=== PATIENT | male | born 1960 | race Caucasian/White ===

== ENCOUNTER 2020-09-29 17:56 | Inpatient (IN) | payer MEDICARE, OTHER ==
[~2020-09-29] VITALS: Ht 152.4 cm; Wt 51.7 kg
--- NOTE | 2020-09-29 18:37 | NUR ---
RT NOTE RECEIVED PT DIRECT ADMIT. PT HAS SHILEY 6 XLT-P TRACHEOSTOMY TUBE IN PLACE. CUFF INFLATED. TRACH TUBE MIDLINE AND SECURE. VENTILATOR SETTINGS ENDORSED BY TRANSPORT CREW RN. ALARMS SET PER PROTOCOL AND AUDIBLE. VENT PLUGGED IN TO RED OUTLET. AMBU BAG AND BACK UP TRACH AT BED SIDE. NO DISTRESS NOTED. PT AWAKE AND ALERT. Addendum: 09/29/20 at 1840 by RONEY MANZO RT Amended: Links added.
[2020-09-29] MEDS ORDERED: METO25TA6 GT (19:15)
[2020-09-29] MEDS ORDERED: ASCO500C17 GT (19:15)
[2020-09-29] MEDS ORDERED: PARO10TA86 GT (19:15)
[2020-09-29] MEDS ORDERED: FAMO20TA80 GT (19:15)
[2020-09-29] MEDS ORDERED: IPRATROPIUM NEB FS 0.5 MG/2.5 ML AMPUL.NEB NEB PRN (19:30)
[2020-09-29] MEDS ORDERED: ALBUTEROL HALF STRENGTH 1.25 MG/3 ML VIAL.NEB NEB PRN (19:30)
[2020-09-29] MEDS ORDERED: ACETAMINOPHEN 325 MG TABLET PO PRN (19:30)
[2020-09-29] MEDS ORDERED: ZOLPIDEM TARTRATE 5 MG TABLET PO PRN (19:30)
[2020-09-29] MEDS ORDERED: MAGNESIUM HYDROXIDE 30 ML UDC PO PRN (19:30)
[2020-09-29] MEDS ORDERED: ONDANSETRON HCL/PF 4 MG/2 ML VIAL IVP PRN (19:30)
--- NOTE | 2020-09-29 19:30 | NUR ---
RN NOTES RECEIVED A DIRECT ADMIT FROM VESNA FROM AM SHIFT. PT IS A/OX2-3; NON VERBAL BUT ABLE TO NOD AND OPEN EYES FOR COMMUNICATION; PT ON MECHANICAL VENT; SETTINGS PRESCRIBED WITH RESPIRATIONS EVEN AND UNLABORED. PT HAS G TUBE FLUSHING AND PATENT; SITE CLEAN DRY AND INTACT; NO RESIDUAL NOTED; CLAMPED AT THIS TIME. NOTED IV SITE ON L AC #20 ; PATENT, INTACT AND FLUSHING WELL; NO S/S OF INFECTION OR INFILTRATION. COMPREHENSIVE PHYSICAL ASSESSMENT AND PATIENT CARE DONE. CALL LIGHT WITHIN REACH, SAFETY MEASURES AND ISOLATION PRECAUTION IN PLACE, WILL CONTINUE MONITOR AND ASSESS THROUGHOUT THE SHIFT. WILL CARRY OUT MD ORDERS ACCORDINGLY. CUSHION FILLER MADE AWARE.
[2020-09-29 20:00] VITALS: BP 92/63
--- NOTE | 2020-09-29 20:00 | NUR ---
RN NOTES NOTED PT TO HAVE MILD TO MODERATE AMOUNT OF SECRETIONS; AUSCULTATION DONE AND PROVIDED SUCTIONING AND REPOSITIONING. PT TOLERATED WELL. WILL CONTINUE TO PROVIDE REGULAR TURNING /REPOSITIONING AND SUCTIONING MEASURES. FINANCIAL INVESTIGATOR WELL AWARE. WILL CONTINUE TO ASSESS AND MONITOR THROUGHOUT THE SHIFT.
[2020-09-29] MEDS: IV NS 0.9% 1,000 ML IV PRN (20:11)
[2020-09-29] MEDS ORDERED: MAGNESIUM HYDROXIDE 30 ML UDC GT PRN (20:23)
[2020-09-29] MEDS ORDERED: ZOLPIDEM TARTRATE 5 MG TABLET GT PRN (20:23)
[2020-09-29] MEDS ORDERED: ACETAMINOPHEN 650 MG/20.3 ML UDC GT PRN (20:30)
--- NOTE | 2020-09-29 20:30 | NUR ---
RN NOTES CALLED JOSÉ MIGUEL WATKINS PROVIDED PERTINENT INFO ABOUT PT; ADVISED HIM THAT PT UED TO GET TUBE FEEDING [facility] IN [facility], JOSÉ MIGUEL WATKINS ORDERED DIETARY CONSULT FOR EVAL AND ASSESSMENT FOR TUBE FEEDING. WILL ENDORSE TO AM SHIFT REGARDING THIS INFO IN THE MORNING. METALLOGRAPHER MADE AWARE.
--- NOTE | 2020-09-29 20:48 | NUR ---
RN NOTES CALLED QUINN MURPHY( [phone]) CONFIRMED CODE STATUS OF PT, SHE SAID PT IS DNR. MANAGER ADMINISTRATIVE SERVICES MADE AWARE. PROVIDED GENERAL UPDATES ABOUT PT WHO JUST GOT ADMITTED.
[2020-09-29] MEDS: CEFEPIME 2 GM in IV D5W 100 ML IV SCH (21:41)
[2020-09-29] MEDS: VANCOMYCIN 0.75 GM in IV D5W 250 ML IV SCH (21:41)
--- NOTE | 2020-09-29 23:00 | NUR ---
RN NOTES NO CHANGE IN PATIENT CONDITION AT THIS TIME PATIENT VITALS STABLE, NO SIGNS OF ACUTE RESPIRATORY DISTRESS. SUBMARINE CABLE EQUIPMENT TECHNICIAN MADE AWARE. WILL CONTINUE TO MONITOR AND REASSESS FOR ANY CHANGES THROUGHOUT THE SHIFT.
[2020-09-30] VITALS: BP 117/78
[2020-09-30 02:35] LABS: ABG BASE EXCESS 6.6 mmol/L; ABG OXYGEN SATURATION 91.1 % (92.0-98.5); ABG PCO2 56.9 mmHg (35.0-45.0); ABG PH 7.383 (7.350-7.450); ABG PO2 64.7 mmHg (75.0-100.0); AaDO2 155.1 mmHg; COHb 0.7 % (0.5-1.5); MetHb 0.3 % (0.0-1.5); O2Hb 90.2 % (94.0-97.0); PEEP,BG 5 cm H2O; SITE, ABG Right Radial; VENT MODE, BG AC 20/480/40%/+5; VT, ABG 450 mL
[2020-09-30 04:00] VITALS: BP 111/81
--- NOTE | 2020-09-30 04:00 | NUR ---
RN NOTES PATIENT REMAINS IN NO ACUTE RESPIRATORY DISTRESS AT THIS TIME, NO CHANGES TO CONDITION/STATUS. AM PATIENT CARE DONE. BAKERY SUPERVISOR WELL AWARE. WILL CONTINUE TO MONITOR AND REASSESS FOR ANY CHANGES THROUGHOUT THE SHIFT
[2020-09-30] MEDS: VANCOMYCIN 0.75 GM in IV D5W 250 ML IV SCH ×2 (04:23→12:54)
[2020-09-30 05:12] LABS: BILIRUBIN,URINE NEGATIVE (NEGATIVE); COLOR,URINE YELLOW (YELLOW); LEUKOCYTE ESTERASE ,URINE NEGATIVE (NEGATIVE); NITRITE, URINE NEGATIVE (NEGATIVE); PROTEIN,URINE 100 mg/dl (NEGATIVE); UGLUCOSE NEGATIVE (NEGATIVE); UROBILINOGEN,URINE 0.2 EU/dL (0.2)
[2020-09-30 06:04] LABS: WBC,URINE 0-2 /HPF (0-3)
[2020-09-30 06:05] LABS: BACTERIA,URINE None seen /HPF (None Seen); SQUAMOUS EPITHELIAL CELL,UR Few /HPF (None Seen); URINE AMORPHOUS URATE Few /HPF (None Seen)
[2020-09-30 06:11] LABS: BASOPHILS # (AUTO) 0.1 K/uL (0.0-0.2); BASOPHILS % (AUTO) 0.3 % (0.0-2.0); EOSINOPHILS % (AUTO) 4.9 % (0.0-6.0); HEMATOCRIT 25 % (39-51); HEMOGLOBIN 7.5 g/dL (13.5-17.5); LYMPHOCYTES # (AUTO) 3.8 K/uL (0.8-4.8); MEAN CORPUSCULAR HGB CONC 31 g/dl (31.0-36.0); MEAN CORPUSCULAR VOLUME 91 fL (80-96); MONOCYTES # (AUTO) 2.2 K/uL (0.1-1.30); MONOCYTES % (AUTO) 9.8 % (2.0-12.0); NEUTROPHILS # (AUTO) 15.3 K/uL (1.8-8.9); PLATELET COUNT (AUTO) 488 K/uL (150-450); WHITE BLOOD COUNT (AUTO) 22.5 K/uL (4.3-11.0)
[2020-09-30 06:39] LABS: CALCIUM, SERUM 8.4 mg/dL (8.5-10.1); CREATININE 0.9 mg/dL (0.6-1.3); MAGNESIUM 1.9 mg/dL (1.8-2.4)
--- NOTE | 2020-09-30 06:52 | NUR ---
RN CLOSING NOTE: PATIENT REMAINS IN ROOM IN NO SIGNS OF RESPIRATORY DISTRESS, PATIENT STILL ON MECH VENT WITH SETTINGS PRESCRIBED;TOLERATING WELL SATURATING @ >95% SP02. SAFETY MEASURES IMPLEMENTED, BED IN LOWEST POSITION, LOCKED, SIDE RAILS UP, CALL LIGHT WITHIN REACH. ALL NEEDS AND ORDERS ADDRESSED DURING THE SHIFT. IV ACCESS MAINTAINED INTACT, SECURED AND FLUSHING WELL. ALL DUE MEDS GIVEN ORDERED & SCHEDULED ; PATIENT TOLERATED WELL. PATIENT KEPT CLEAN AND COMFORTABLE WITHIN THE SHIFT. PATIENT ENDORSED TO INCOMING SHIFT RN WITH STABLE VITAL SIGN AND FOR CONTINUITY OF CARE.
--- NOTE | 2020-09-30 07:30 | NUR ---
KISS MACHINE OPERATOR AM NOTES: PATIENT IN BED, ASLEEP, AROUSES TO NAME AND TOUCH, MOUTH WORDS, NODS HEAD TO SIMPLE QUESTIONS, WITH SHILEY 6 TRACH TO MECHANICAL VENT WITH SETTINGS AC 20 TV 480 FIO2 50 PEEP 5, BREATHING EVEN AND UNLABORED, NOT IN ANY DISTRESS, SINUS RHYTHM ON THE MONITOR HR 80s TO 90s, SATURATING @ >98% SP02, DENIES PAIN AT THIS TIME. LEFT AC G 20 WITH NS A T 75 ML/HR INFUSING, SITE CLEAR. GT CLAMPED FOR NOW, SEE NURSING ASSESSMENT FOR SKIN ISSUES. SAFETY MEASURES IN PLACE. BED IN LOWEST POSITION, LOCKED, SIDE RAILS UP, CALL LIGHT WITHIN REACH. NEEDS ANTICIPATED. WILL CONTINUE TO MONITOR
[2020-09-30] MEDS ORDERED: ALBU8.5H8 IH (07:41)
[2020-09-30] MEDS ORDERED: DEXT15DR6 OP (07:41)
[2020-09-30] MEDS ORDERED: SCOP1PAT11 TD (07:41)
[2020-09-30] MEDS ORDERED: ACET325T53 GT (07:41)
[2020-09-30] MEDS ORDERED: ONDA4TAB11 GT (07:41)
[2020-09-30] MEDS ORDERED: ACET100V4 MC (07:41)
[2020-09-30] MEDS ORDERED: CEFE2FRO IV (07:41)
[2020-09-30] MEDS ORDERED: LACT250L14 GT (07:41)
[2020-09-30] MEDS ORDERED: TRAZ-182 GT (07:41)
[2020-09-30] MEDS ORDERED: ACID1TAB12 GT (07:41)
[2020-09-30] MEDS ORDERED: MIDO10TA GT (07:41)
[2020-09-30] MEDS ORDERED: LATA2.5D15 OP (07:41)
[2020-09-30] MEDS ORDERED: MULT-447 GT (07:41)
[2020-09-30] MEDS ORDERED: IPRA3AMP23 IH (07:41)
[2020-09-30] MEDS ORDERED: HYDR-4209 GT (07:41)
[2020-09-30] MEDS ORDERED: CHOL200059 GT (07:41)
[2020-09-30] MEDS ORDERED: FAMO20TA8 GT (07:41)
[2020-09-30] MEDS ORDERED: MAGN400O6 GT (07:41)
[2020-09-30 08:00] VITALS: BP 112/72
[2020-09-30] MEDS ORDERED: FAMOTIDINE (20 MG) 20 MG TABLET GT SCH (09:00)
--- NOTE | 2020-09-30 09:30 | NUR ---
RN NOTES DUE MEDS GIVEN
[2020-09-30] MEDS: CEFEPIME 2 GM in IV D5W 100 ML IV SCH ×2 (09:52→21:55)
[2020-09-30] MEDS: METOPROLOL TARTRATE 25 MG TABLET GT SCH (09:54)
[2020-09-30] MEDS: ASCORBIC ACID 500 MG TABLET GT SCH (09:54)
[2020-09-30] MEDS: PAROXETINE HCL 10 MG TABLET GT SCH (09:54)
[2020-09-30] MEDS: IV NS 0.9% 1,000 ML IV PRN (10:04)
[2020-09-30] MEDS: IPRATROPIUM/ALBUTEROL INHALER IH SCH ×2 (10:21→13:30)
[2020-09-30] MEDS: ENOXAPARIN SODIUM 40 MG/0.4 ML DISP.SYRIN SQ SCH (11:20)
[2020-09-30 11:22] LABS: BAND % (MANUAL) 1 % (0.0-5.0); EOSINOPHILS % (MANUAL) 1 % (0-4); LYMPHOCYTES % (MANUAL) 12 % (16-48); MONOCYTES % (MANUAL) 6 % (0-11.0); NEUTROPHILS % (MANUAL) 80 (42-76)
[2020-09-30] MEDS ORDERED: POLYVINYL ALCOHOL 15 ML BOTTLE EACHEYE PRN (11:30)
[2020-09-30 12:00] VITALS: BP 113/73
[2020-09-30] MEDS ORDERED: IPRATROPIUM BROMIDE 14 GM INHALER (or 12.9 GM) IH SCH (12:00)
[2020-09-30] MEDS ORDERED: ALBUTEROL SULFATE INH 18 GM HFA.AER.AD IH SCH (12:00)
[2020-09-30] MEDS: CHOLECALCIFEROL 1,000 UNIT TABLET (VIT D3) PO SCH (12:54)
[2020-09-30 13:00] LABS: IRON, SERUM 47 ug/dl (50-175); TOTAL IRON BINDING CAPACITY 212 ug/dl (250-450)
[2020-09-30] MEDS ORDERED: ACETYLCYSTEINE 10% SOLN 400 MG/4 ML VIAL HHN PRN (13:30)
--- NOTE | 2020-09-30 15:19 | NUR ---
RN NOTES PER DARLYN BRADFORD NP. IRVING TO START TUBE FEEDING, JEVITY 1.2 AT 60 ML/HR X 20 HOURS. ALSO FOR DIETARY CONSULT
[2020-09-30 16:00] VITALS: BP 112/68
--- NOTE | 2020-09-30 16:28 | NUR ---
RN NOTES BLADDER SCAN DONE. URINE >300 ML. JAMIL CATH INSERTED PCR COVID TEST SPECIMEN COLLECTED ND SENT TO LAB C/O DEANN CHARGE NURSE
[2020-09-30] MEDS: FAMOTIDINE (20 MG) 20 MG TABLET GT SCH (17:31)
--- NOTE | 2020-09-30 18:24 | NUR ---
FULL STACK SOFTWARE DEVELOPER PM NOTES: PATIENT IN BED, AOX 3, MOUTH WORDS, NODS HEAD TO SIMPLE QUESTIONS, WITH SHILEY 6 TRACH TO MECHANICAL VENT WITH SETTINGS AC 20 TV 480 FIO2 50 PEEP 5, BREATHING EVEN AND UNLABORED, NOT IN ANY DISTRESS, SINUS RHYTHM ON THE MONITOR HR 80s TO 90s, SATURATING @ >97% SP02, DENIES PAIN AT THIS TIME. LEFT AC G 20 WITH NS AT 75 ML/HR INFUSING, SITE CLEAR. GT CLAMPED FOR NOW, SAFETY MEASURES IN PLACE. BED IN LOWEST POSITION, LOCKED, SIDE RAILS UP, CALL LIGHT WITHIN REACH. PM CARE DONE. TURNED AND REPOSITIONED. ALL NEEDS MET AT THIS TIME. WILL ENDORSE TO NEXT SHIFT. JAMIL IN PLACE, CLOUDY URINE OUTPUT, 275 ML. PATIENT TO START GT FEEDING, CHECKED WITH DIETARY. NO BOTTLE AVAILABLE YET.
[2020-09-30] MEDS: ALBUTEROL SULFATE INH 18 GM HFA.AER.AD IH SCH (19:30)
--- NOTE | 2020-09-30 19:58 | NUR ---
RN NOTES RECEIVED PATIENT SLEEPING BUT AROUSABLE, VENT DEPENDENT, SR ON TELE MONITOR HR-92., F/C DRAINING CLEAR YELLOW URINE, NOT IN DISTRESS, NO PAIN NOTED, SIDERAILSUPX2, WILL CONTINUE TO MONITOR
[2020-09-30 20:00] VITALS: BP 122/72
[2020-09-30] MEDS: ACIDOPHILUS/BULGARICUS 1 EACH TAB.CHEW GT SCH (20:17)
[2020-09-30] MEDS: JEVITY 1.2 CAL 1,000 ML BOTTLE GT PRN (20:24)
[2020-09-30] MEDS: IPRATROPIUM BROMIDE 14 GM INHALER (or 12.9 GM) IH SCH (20:25)
--- NOTE | 2020-09-30 20:40 | NUR ---
RN NOTES G-TUIBE FEEDING STARTED @ 60ML/HR, WILL CONTINUE TO MONITOR
[2020-09-30] MEDS: LATANOPROST EYE DROP 0.005% 2.5 ML BOTTLE EACHEYE SCH (21:55)
[2020-10-01] VITALS (12 sets, daily range): BP systolic 96–124; BP diastolic 64–81
[2020-10-01] MEDS: IV NS 0.9% 1,000 ML IV PRN ×2 (00:06→16:25)
[2020-10-01] MEDS: ALBUTEROL SULFATE INH 18 GM HFA.AER.AD IH SCH ×4 (01:30→19:30)
--- NOTE | 2020-10-01 04:00 | NUR ---
RN NOTES RECEIVED PT. FROM ER WITH DX. OF NAUSEA AND VOMITING, A/OX1, CONFUSED, PATIENT IS TRYING TO SCRATCH THE STAFF, KICKING, SKIN ASSESSMENT WAS DONE, MAKE PATIENT COMFORTABLE, PUT ON SAFETY MEASURES, SIDERAILSUPX3, WILL CONTINUE TO MONITOR Addendum: 10/01/20 at 0657 by JONELLE GORDON RN WRONG PATIENT
[2020-10-01] MEDS: IPRATROPIUM BROMIDE 14 GM INHALER (or 12.9 GM) IH SCH ×4 (05:23→19:36)
--- NOTE | 2020-10-01 06:47 | NUR ---
RN NOTES AWAKE, NOT IN DISTRESS, NO PAIN NOTED, MORNING CARE RENDERED, G-TUBE FEEDING IS TOLERATING WELL, SIDERAILSUPX2, PT. NEEDS ATTENDED
[2020-10-01 08:17] LABS: BASOPHILS # (AUTO) 0.1 K/uL (0.0-0.2); BASOPHILS % (AUTO) 0.4 % (0.0-2.0); EOSINOPHILS % (AUTO) 3.7 % (0.0-6.0); HEMATOCRIT 22 % (39-51); LYMPHOCYTES # (AUTO) 3.5 K/uL (0.8-4.8); LYMPHOCYTES % (AUTO) 15.8 % (20.0-44.0); MEAN CORPUSCULAR HGB CONC 31 g/dl (31.0-36.0); MEAN CORPUSCULAR VOLUME 90 fL (80-96); MONOCYTES # (AUTO) 1.8 K/uL (0.1-1.30); MONOCYTES % (AUTO) 8.2 % (2.0-12.0); NEUTROPHILS % (AUTO) 71.9 % (43.0-81.0); PLATELET COUNT (AUTO) 432 K/uL (150-450); RED BLOOD CELL COUNT(AUTO) 2.45 MIL/uL (4.5-6.0); WHITE BLOOD COUNT (AUTO) 22.2 K/uL (4.3-11.0)
[2020-10-01 08:24] LABS: HEMOGLOBIN 6.9 g/dL (13.5-17.5)
[2020-10-01 08:32] LABS: CALCIUM, SERUM 7.9 mg/dL (8.5-10.1); CREATININE 0.8 mg/dL (0.6-1.3); MAGNESIUM 1.8 mg/dL (1.8-2.4); PHOSPHORUS 2.8 mg/dL (2.5-4.9); POTASSIUM 3.4 mmol/L (3.5-5.1)
[2020-10-01] MEDS ORDERED: VANCOMYCIN 0.75 GM in IV D5W 250 ML IV SCH (09:00)
[2020-10-01] MEDS ORDERED: POTASSIUM CHLORIDE 20 MEQ POWDER PACKET GT ONE (10:00)
[2020-10-01] MEDS: ACIDOPHILUS/BULGARICUS 1 EACH TAB.CHEW GT SCH ×2 (11:19→20:39)
[2020-10-01] MEDS: CHOLECALCIFEROL 1,000 UNIT TABLET (VIT D3) PO SCH (11:19)
[2020-10-01] MEDS: ASCORBIC ACID 500 MG TABLET GT SCH (11:19)
[2020-10-01] MEDS: PAROXETINE HCL 10 MG TABLET GT SCH (11:20)
[2020-10-01] MEDS: ENOXAPARIN SODIUM 40 MG/0.4 ML DISP.SYRIN SQ SCH (11:20)
[2020-10-01] MEDS: FAMOTIDINE (20 MG) 20 MG TABLET GT SCH ×2 (11:20→17:38)
[2020-10-01] MEDS: MULTIVITAMINS,THERAGRAN 1 UDTAB TABLET GT SCH (11:20)
[2020-10-01] MEDS: METOPROLOL TARTRATE 25 MG TABLET GT SCH (11:21)
[2020-10-01] MEDS: CEFEPIME 2 GM in IV D5W 100 ML IV SCH ×2 (11:25→22:24)
--- NOTE | 2020-10-01 19:30 | NUR ---
PATIENT RECIEVED IN BED, A&OX 2-3. PT IS VENTILATOR DEPENDENT WITH TRACH. TRACH# SHILEY 6 WITH SETTINGS AC 20 TV 480 FIO2 50 PEEP 5. NORMAL SR ON MONITOR BETWEEN 80S-90S. PT 02 SATURATION 97-100% WITH NO S/S OF SOB, RESPIRATORY DISTRESS. PT HAS LEFT UA MIDLINE AND LEFT AC G 20 WITH NS AT 75 ML/HR INFUSING, SITE FLUSHED AND INTACT. BED LOCKED AND IN LOWEST POSITION, SIDE RAILS UP X3, CALL LIGHT WITHIN REACH. WILL CONTINUE TO MONITOR.
[2020-10-01] MEDS: VANCOMYCIN 0.75 GM in IV D5W 250 ML IV SCH (20:39)
[2020-10-01] MEDS: JEVITY 1.2 CAL 1,000 ML BOTTLE GT PRN (20:40)
[2020-10-01] MEDS: LATANOPROST EYE DROP 0.005% 2.5 ML BOTTLE EACHEYE SCH (22:25)
[2020-10-02] VITALS: BP 116/68
[2020-10-02] MEDS ORDERED: Z GUARD REMEDY 4 OZ OINT TP ONE (01:07)
[2020-10-02] MEDS: IPRATROPIUM BROMIDE 14 GM INHALER (or 12.9 GM) IH SCH ×2 (01:29→07:38)
[2020-10-02] MEDS: ALBUTEROL SULFATE INH 18 GM HFA.AER.AD IH SCH ×2 (01:29→07:35)
[2020-10-02 04:00] VITALS: BP 115/72
[2020-10-02 06:19] LABS: BASOPHILS # (AUTO) 0.1 K/uL (0.0-0.2); BASOPHILS % (AUTO) 0.5 % (0.0-2.0); EOSINOPHILS % (AUTO) 4.4 % (0.0-6.0); HEMATOCRIT 24 % (39-51); HEMOGLOBIN 7.6 g/dL (13.5-17.5); LYMPHOCYTES # (AUTO) 3.9 K/uL (0.8-4.8); MEAN CORPUSCULAR HGB CONC 32 g/dl (31.0-36.0); MEAN CORPUSCULAR VOLUME 91 fL (80-96); MONOCYTES # (AUTO) 1.8 K/uL (0.1-1.30); MONOCYTES % (AUTO) 9.7 % (2.0-12.0); NEUTROPHILS % (AUTO) 64.4 % (43.0-81.0); PLATELET COUNT (AUTO) 383 K/uL (150-450); RED BLOOD CELL COUNT(AUTO) 2.66 MIL/uL (4.5-6.0); WHITE BLOOD COUNT (AUTO) 18.7 K/uL (4.3-11.0)
[2020-10-02 06:32] LABS: CALCIUM, SERUM 8.3 mg/dL (8.5-10.1); CREATININE 0.8 mg/dL (0.6-1.3); MAGNESIUM 1.6 mg/dL (1.8-2.4); PHOSPHORUS 2.6 mg/dL (2.5-4.9); POTASSIUM 3.5 mmol/L (3.5-5.1)
--- NOTE | 2020-10-02 06:36 | NUR ---
RN CLOSING NOTE: PT IN ROOM A&OX2-3. NORMAL SR. CURRENT O2 SATURATION IS >95% SHOWING NO S/S OF SOB/RESPIRATORY DISTRESS. PATIENT STILL ON MECH VENT WITH SETTINGS PRESCRIBED. PT CURRENTLY RECEIVING JEVITY 1.2@ 60 ML/HR, TOLERATING WELL WITH NO RESIDUAL. PATIENT ALSO HAS LEFT AC AND LEFT UA MIDLINE RECEIVING NS AT 75ML/HR. SAFETY MEASURES IMPLEMENTED, BED IN LOCKED AND IN LOWEST POSITION, SIDE RAILS UP, CALL LIGHT WITHIN REACH. ALL NEEDS AND ORDERS ADDRESSED DURING THE SHIFT. PATIENT KEPT CLEAN AND COMFORTABLE WITHIN THE SHIFT. WILL ENDORSE TO MORNING SHIFT RN FOR CONTINUITY OF CARE.
[2020-10-02 08:00] VITALS: BP 115/76
[2020-10-02] MEDS: CHOLECALCIFEROL 1,000 UNIT TABLET (VIT D3) PO SCH (08:47)
[2020-10-02] MEDS: ASCORBIC ACID 500 MG TABLET GT SCH (08:47)
[2020-10-02] MEDS: METOPROLOL TARTRATE 25 MG TABLET GT SCH (08:47)
[2020-10-02] MEDS: FAMOTIDINE (20 MG) 20 MG TABLET GT SCH ×2 (08:47→17:30)
[2020-10-02] MEDS: ACIDOPHILUS/BULGARICUS 1 EACH TAB.CHEW GT SCH ×2 (08:47→21:36)
[2020-10-02] MEDS: MULTIVITAMINS,THERAGRAN 1 UDTAB TABLET GT SCH (08:48)
[2020-10-02] MEDS: PAROXETINE HCL 10 MG TABLET GT SCH (08:48)
[2020-10-02] MEDS: ENOXAPARIN SODIUM 40 MG/0.4 ML DISP.SYRIN SQ SCH (08:49)
[2020-10-02] MEDS: CEFEPIME 2 GM in IV D5W 100 ML IV SCH ×2 (09:35→22:52)
[2020-10-02] MEDS: Magnesium 1GM/D5W 100ML PREMIX 100 ML IV SCH ×2 (09:35→10:28)
--- NOTE | 2020-10-02 10:00 | NUR ---
WOUND CARE CONSULT: PT PRESENTS WITH STAGE 2 ULCER TO SACRUM AND RASH TO ABDOMINAL/GROIN FOLDS, PERINEUM AND BUTTOCKS, PRESENT ON ADMISSION. RECOMMENDATIONS MADE FOR SKIN PROTECTION AND WOUND CARE. DISCUSSED WITH NURSING STAFF. PT IS ON [facility] BED. IN AGREEMENT WITH PLAN OF CARE. Addendum: 10/02/20 at 1002 by BRISA TRIVEDI WNDNU Amended: Links added.
[2020-10-02] MEDS ORDERED: ALBUTEROL HALF STRENGTH 1.25 MG/3 ML VIAL.NEB NEB SCH (10:30)
[2020-10-02] MEDS: IPRATROPIUM NEB FS 0.5 MG/2.5 ML AMPUL.NEB NEB SCH ×4 (11:30→23:03)
[2020-10-02 12:00] VITALS: BP 128/81
--- NOTE | 2020-10-02 15:06 | NUR ---
Gastric residual 20 ml. Feeding held by MACHINE LAY OUT WORKER to recheck gastric residual at 1900. Brandin Schulz RN
[2020-10-02 16:00] VITALS: BP 111/65
[2020-10-02] MEDS: ALBUTEROL HALF STRENGTH 1.25 MG/3 ML VIAL.NEB NEB SCH ×3 (16:04→23:03)
[2020-10-02] MEDS: CLOTRIMAZOLE 1% 15 GM TUBE TP SCH (17:30)
[2020-10-02] MEDS: IV NS 0.9% 1,000 ML IV PRN (19:04)
--- NOTE | 2020-10-02 19:08 | NUR ---
Gastric residual 5ml. Resumed tube feeding . Brandin Schulz RN
--- NOTE | 2020-10-02 19:35 | NUR ---
RN OPENING NOTE PT RECEIVED IN BED, A&OX 2-3. PT IS VENTILATOR DEPENDENT WITH TRACH. TRACH# SHILEY 6 WITH SETTINGS AC 20 TV 480 FIO2 50 PEEP 5. NORMAL SR ON MONITOR BETWEEN 80S-90S. PT 02 SATURATION >98% WITH NO S/S OF SOB, RESPIRATORY DISTRESS. PT HAS LEFT UA MIDLINE AND LEFT AC G 20 WITH NS INFUSING AT 75ML/HR. IV SITE FLUSHED AND INTACT. PT CURRENTLY RECEIVING JEVITY 1.2 @ 60ML/HR. NO RESIDUAL NOTED, PT TOLERATING FEEDING WELL. BED LOCKED AND IN LOWEST POSITION, SIDE RAILS UP X3, CALL LIGHT WITHIN REACH. WILL CONTINUE TO MONITOR.
[2020-10-02 20:00] VITALS: BP 123/80
[2020-10-02] MEDS: VANCOMYCIN 0.75 GM in IV D5W 250 ML IV SCH (21:35)
[2020-10-02] MEDS: LATANOPROST EYE DROP 0.005% 2.5 ML BOTTLE EACHEYE SCH (21:36)
[2020-10-03] MEDS: ALBUTEROL HALF STRENGTH 1.25 MG/3 ML VIAL.NEB NEB SCH ×6 (03:24→23:50)
[2020-10-03] MEDS: IPRATROPIUM NEB FS 0.5 MG/2.5 ML AMPUL.NEB NEB SCH ×6 (03:24→23:50)
[2020-10-03 04:00] VITALS: BP 111/72
[2020-10-03 06:28] LABS: BASOPHILS # (AUTO) 0.1 K/uL (0.0-0.2); BASOPHILS % (AUTO) 0.6 % (0.0-2.0); EOSINOPHILS % (AUTO) 5.7 % (0.0-6.0); HEMATOCRIT 25 % (39-51); HEMOGLOBIN 7.9 g/dL (13.5-17.5); LYMPHOCYTES # (AUTO) 3.2 K/uL (0.8-4.8); LYMPHOCYTES % (AUTO) 23.3 % (20.0-44.0); MEAN CORPUSCULAR HGB CONC 32 g/dl (31.0-36.0); MEAN CORPUSCULAR VOLUME 91 fL (80-96); MONOCYTES # (AUTO) 1.4 K/uL (0.1-1.30); MONOCYTES % (AUTO) 10.2 % (2.0-12.0); NEUTROPHILS # (AUTO) 8.2 K/uL (1.8-8.9); NEUTROPHILS % (AUTO) 60.2 % (43.0-81.0); PLATELET COUNT (AUTO) 384 K/uL (150-450); WHITE BLOOD COUNT (AUTO) 13.5 K/uL (4.3-11.0)
--- NOTE | 2020-10-03 06:40 | NUR ---
RN CLOSING NOTE: PT IN ROOM A&OX2-3. NORMAL SR. CURRENT O2 SATURATION IS >95% SHOWING NO S/S OF SOB/RESPIRATORY DISTRESS. PATIENT STILL ON MECH VENT WITH SETTINGS PRESCRIBED. PT CURRENTLY RECEIVING JEVITY 1.2@ 60 ML/HR, TOLERATING WELL WITH NO RESIDUAL. PATIENT ALSO HAS LEFT AC AND LEFT UA MIDLINE RECEIVING NS AT 75ML/HR. SAFETY MEASURES IMPLEMENTED, BED IN LOCKED AND IN LOWEST POSITION, SIDE RAILS UP, CALL LIGHT WITHIN REACH. ALL NEEDS AND ORDERS ADDRESSED DURING THE SHIFT. PATIENT KEPT CLEAN AND COMFORTABLE WITHIN THE SHIFT. WILL ENDORSE TO MORNING SHIFT RN FOR CONTINUITY OF CARE. Addendum: 10/03/20 at 0642 by DANYELLE YODER RN NO SIGNIFICANT CHANGES IN PATIENT CONDITION. WILL ENDORSE TO MORNING RN.
[2020-10-03 06:57] LABS: CALCIUM, SERUM 8.1 mg/dL (8.5-10.1); CREATININE 0.7 mg/dL (0.6-1.3); MAGNESIUM 2.2 mg/dL (1.8-2.4); POTASSIUM 3.6 mmol/L (3.5-5.1)
--- NOTE | 2020-10-03 07:24 | NUR ---
TRUCK SERVICE TECHNICIAN NOTE PATIENT IN BED ,AWAKE ALERT WITH TRACH TO VENT SETTING ORDERED ,ON TELE MONITOR SR HR 81 G TUBE STOPED AT AT THIS TIME ,RUINING FOR 20 HOURS , ON IVF ORDERED, LT AC AND LT FA MID LINE IN PLACE , BED IN LOWEST AND LOCKED POSITION ,CALL LIGHT WITHIN REACH , WILL MONITOR
--- NOTE | 2020-10-03 07:40 | NUR ---
RN OPENING NOTE RECEIVED PT. IN BED, A&OX 2-3. PT IS VENTILATOR DEPENDENT WITH TRACH. TRACH# SHILEY 6 WITH MD ORDERED SETTINGS AC 20 TV 480 FIO2 40 PEEP 5. NORMAL SR ON MONITOR BETWEEN 80S-90S. PT 02 SATURATION >98% WITH NO S/S OF SOB, RESPIRATORY DISTRESS. PT HAS LEFT UA MIDLINE PATENT AND FLUSHED. DRESSING CLEAN DRY AND INTACT. NS INFUSING AT 75ML/HR. PT CURRENTLY RECEIVING JEVITY 1.2 @ 60ML/HR, PLACEMENT ASSESSED. NO RESIDUAL NOTED. PT TOLERATING FEEDING WELL. SAFETY MEASURES IN PLACE, BED LOCKED AND IN LOWEST POSITION, SIDE RAILS UP X3, CALL LIGHT WITHIN REACH, HOB ELEVATED, ASPIRATION PRECAUTIONS IN PLACE. NO ACUTE DISTRESS NOTED AT THIS TIME. Addendum: 10/03/20 at 2346 by KENAN LOPEZ RN DISREGARD NOTE, INCORRECT TIME.
[2020-10-03 08:00] VITALS: BP 112/76
[2020-10-03] MEDS: FAMOTIDINE (20 MG) 20 MG TABLET GT SCH ×2 (08:04→16:28)
[2020-10-03] MEDS: ACIDOPHILUS/BULGARICUS 1 EACH TAB.CHEW GT SCH ×2 (08:05→21:04)
[2020-10-03] MEDS: MULTIVITAMINS,THERAGRAN 1 UDTAB TABLET GT SCH (08:05)
[2020-10-03] MEDS: ASCORBIC ACID 500 MG TABLET GT SCH (08:05)
[2020-10-03] MEDS: CHOLECALCIFEROL 1,000 UNIT TABLET (VIT D3) PO SCH (08:06)
[2020-10-03] MEDS: PAROXETINE HCL 10 MG TABLET GT SCH (08:06)
[2020-10-03] MEDS: METOPROLOL TARTRATE 25 MG TABLET GT SCH (08:07)
[2020-10-03] MEDS: CLOTRIMAZOLE 1% 15 GM TUBE TP SCH ×2 (08:08→16:28)
[2020-10-03] MEDS: ENOXAPARIN SODIUM 40 MG/0.4 ML DISP.SYRIN SQ SCH (08:08)
[2020-10-03] MEDS: CEFEPIME 2 GM in IV D5W 100 ML IV SCH ×2 (09:38→22:28)
--- NOTE | 2020-10-03 10:00 | NUR ---
telesales supervisor note dr núñez at bedside updated patient condition ,rt at bedside trach suction done , all needs attended ,turn reposition done keep clean dry ,will monitor
[2020-10-03] MEDS: IV NS 0.9% 1,000 ML IV PRN (10:30)
[2020-10-03 12:00] VITALS: BP 111/71
--- NOTE | 2020-10-03 15:00 | NUR ---
ENVIRONMENTAL STUDIES PROGRAM DIRECTOR NOTE ALL NEEDS ATTENDED, KEEP CLEAN DRY , NOT IN DISTRESS ,TRACH SUCTION DONE
[2020-10-03 16:00] VITALS: BP 129/81
--- NOTE | 2020-10-03 18:29 | NUR ---
SERVICING MANAGER NOTE PATIENT IN BED WITH TRACH TO VENT SETTING ORDERED, SATURATION 97% AT THIS TIME , ON TELE MONITOR SR , WITH G TUBE FEEDING ORDERED , NO RESIDUAL NOTED , KEEP HOB ELEVATED AT ALL TIME , ON IVF ORDERED LT UPPER MID LINE IN PLACE AND FLUSHED WELL , BED IN LOWEST AND LOCKED POSITION, TRACH SUCTION DONE , SAFETY MEASURE IN PLACED , WILL CON TO MONITOR CLOSELY
--- NOTE | 2020-10-03 19:38 | NUR ---
RN OPENING NOTE RECEIVED PT. IN BED, A&OX 2-3. PT IS VENTILATOR DEPENDENT WITH TRACH. TRACH# SHILEY 6 WITH MD ORDERED SETTINGS AC 20 TV 480 FIO2 40 PEEP 5. NORMAL SR ON MONITOR BETWEEN 80S-90S. PT 02 SATURATION >98% WITH NO S/S OF SOB, RESPIRATORY DISTRESS. PT HAS LEFT UA MIDLINE PATENT AND FLUSHED. DRESSING CLEAN DRY AND INTACT. NS INFUSING AT 75ML/HR. PT CURRENTLY RECEIVING JEVITY 1.2 @ 60ML/HR, PLACEMENT ASSESSED. NO RESIDUAL NOTED. PT TOLERATING FEEDING WELL. SAFETY MEASURES IN PLACE, BED LOCKED AND IN LOWEST POSITION, SIDE RAILS UP X3, CALL LIGHT WITHIN REACH, HOB ELEVATED, ASPIRATION PRECAUTIONS IN PLACE. NO ACUTE DISTRESS NOTED AT THIS TIME.
[2020-10-03 20:00] VITALS: BP 145/86
[2020-10-03] MEDS: VANCOMYCIN 0.75 GM in IV D5W 250 ML IV SCH (21:04)
[2020-10-03] MEDS: LATANOPROST EYE DROP 0.005% 2.5 ML BOTTLE EACHEYE SCH (21:45)
[2020-10-04] VITALS: BP 143/76
[2020-10-04 04:00] VITALS: BP 119/74
[2020-10-04] MEDS: ALBUTEROL HALF STRENGTH 1.25 MG/3 ML VIAL.NEB NEB SCH ×6 (04:16→23:47)
[2020-10-04] MEDS: IPRATROPIUM NEB FS 0.5 MG/2.5 ML AMPUL.NEB NEB SCH ×6 (04:16→23:44)
[2020-10-04] MEDS: IV NS 0.9% 1,000 ML IV PRN ×2 (04:22→23:14)
--- NOTE | 2020-10-04 06:46 | NUR ---
RN CLOSING NOTE PT IN ROOM A&OX2-3. NORMAL SR. CURRENT O2 SATURATION IS >95% ON PRESCRIBED MECHANICAL VENT SETTINGS. SHOWING NO S/S OF SOB/RESPIRATORY DISTRESS. . PT CURRENTLY RECEIVING JEVITY 1.2@ 60 ML/HR, TOLERATING WELL WITH 30 ML RESIDUAL. PATIENT HAS LEFT UA MIDLINE RECEIVING NS AT 75ML/HR, FLUSHED AND PATENT. PATIENT WAS ABLE TO REST COMFORTABLY THROUGHOUT NIGHT. SUCTIONING COMPLETED NEEDED. ALL NEEDS ATTENDED TO. PT. KEPT CLEAN AND DRY AND WOUND CARE COMPLETED ORDERED. JAMIL CATHETER FLOWING TO GRAVITY, PATENT WITH CLEAR YELLOW URINE. SAFETY MEASURES IMPLEMENTED, BED LOCKED AND IN LOWEST POSITION, SIDE RAILS UP X3, CALL LIGHT WITHIN REACH. NO ACUTE DISTRESS NOTED AT THIS TIME. WILL ENDORSE TO MORNING SHIFT RN FOR CONTINUITY OF CARE.
[2020-10-04 07:38] LABS: CALCIUM, SERUM 8.2 mg/dL (8.5-10.1); CREATININE 0.8 mg/dL (0.6-1.3); POTASSIUM 3.6 mmol/L (3.5-5.1)
[2020-10-04 08:00] VITALS: BP 130/79
[2020-10-04 08:18] LABS: BASOPHILS # (AUTO) 0.2 K/uL (0.0-0.2); HEMATOCRIT 24 % (39-51); HEMOGLOBIN 7.7 g/dL (13.5-17.5); LYMPHOCYTES # (AUTO) 3.5 K/uL (0.8-4.8); MEAN CORPUSCULAR HGB CONC 32 g/dl (31.0-36.0); MEAN CORPUSCULAR VOLUME 92 fL (80-96); MONOCYTES # (AUTO) 1.5 K/uL (0.1-1.30); MONOCYTES % (AUTO) 9.9 % (2.0-12.0); NEUTROPHILS # (AUTO) 8.7 K/uL (1.8-8.9); NEUTROPHILS % (AUTO) 59.1 % (43.0-81.0); PLATELET COUNT (AUTO) 425 K/uL (150-450); RED BLOOD CELL COUNT(AUTO) 2.62 MIL/uL (4.5-6.0); WHITE BLOOD COUNT (AUTO) 14.8 K/uL (4.3-11.0)
[2020-10-04] MEDS: ENOXAPARIN SODIUM 40 MG/0.4 ML DISP.SYRIN SQ SCH (09:00)
[2020-10-04] MEDS: CEFEPIME 2 GM in IV D5W 100 ML IV SCH ×2 (09:32→23:10)
[2020-10-04] MEDS: METOPROLOL TARTRATE 25 MG TABLET GT SCH (09:32)
[2020-10-04] MEDS: PAROXETINE HCL 10 MG TABLET GT SCH (09:33)
[2020-10-04] MEDS: ASCORBIC ACID 500 MG TABLET GT SCH (09:33)
[2020-10-04] MEDS: CHOLECALCIFEROL 1,000 UNIT TABLET (VIT D3) PO SCH (09:33)
[2020-10-04] MEDS: ACIDOPHILUS/BULGARICUS 1 EACH TAB.CHEW GT SCH ×2 (09:33→21:27)
[2020-10-04] MEDS: FAMOTIDINE (20 MG) 20 MG TABLET GT SCH ×2 (09:34→16:25)
[2020-10-04] MEDS: MULTIVITAMINS,THERAGRAN 1 UDTAB TABLET GT SCH (09:34)
[2020-10-04] MEDS: Z GUARD REMEDY 2 OZ OINT TP PRN (09:36)
[2020-10-04] MEDS: PROSOURCE / PROSTAT (PYXIS) 30 ML UDC GT SCH (09:38)
[2020-10-04] MEDS: CLOTRIMAZOLE 1% 15 GM TUBE TP SCH ×2 (09:50→16:25)
[2020-10-04] MEDS: JEVITY 1.2 CAL 1,000 ML BOTTLE GT PRN (10:38)
[2020-10-04 12:00] VITALS: BP 125/79
[2020-10-04 16:00] VITALS: BP 126/76
[2020-10-04 20:00] VITALS: BP 125/77
--- NOTE | 2020-10-04 20:00 | NUR ---
RN NOTE RECEIVED PT IN BED, AWAKE. WITH TRACH, ON MECH VENT. NO SIGNS OF DISTRESS NOTED. O2 SAT AT 97%. KEPT HOB ELEVATED. ON GT FEEDING, GT PATENT AND IN PLACE. NO RESIDUALS NOTED. JAMIL IN PLACE. PT ON IVF NS AT 75 ML/HR. WILL CONTINUE TO MONITOR.
[2020-10-04] MEDS: VANCOMYCIN 0.75 GM in IV D5W 250 ML IV SCH (21:28)
[2020-10-04] MEDS: LATANOPROST EYE DROP 0.005% 2.5 ML BOTTLE EACHEYE SCH (23:10)
[2020-10-05] VITALS: BP 121/73
[2020-10-05] MEDS: IPRATROPIUM NEB FS 0.5 MG/2.5 ML AMPUL.NEB NEB SCH ×6 (03:30→23:39)
[2020-10-05] MEDS: ALBUTEROL HALF STRENGTH 1.25 MG/3 ML VIAL.NEB NEB SCH ×6 (03:30→23:39)
[2020-10-05 04:00] VITALS: BP 123/75
--- NOTE | 2020-10-05 07:00 | NUR ---
RN NOTE NO SIGNIFICANT CHANGES NOTED. PT TOLERATING VENT SETTINGS, NO DISTRESS NOTED. WOUND CARE DONE. PT TOLERATED TUBE FEEDING, NO RESIDUALS NOTED. KEPT HOB ELEVATED. NO S/S OF ASPIRATION NOTED. PT HAD 1 BM. KEPT CLEAN AND DRY. JAMIL IN PLACE. DRAINING CLEAR URINE OUTPUT. REMAIN AFEBRILE. WILL ENDORSE TO NEXT SHIFT NURSE FOR TOSHIA.
[2020-10-05] MEDS: JEVITY 1.2 CAL 1,000 ML BOTTLE GT PRN (07:32)
[2020-10-05 07:41] LABS: CALCIUM, SERUM 8.6 mg/dL (8.5-10.1); CREATININE 0.7 mg/dL (0.6-1.3); POTASSIUM 3.8 mmol/L (3.5-5.1)
--- NOTE | 2020-10-05 07:50 | NUR ---
RN NOTE ENDORSED PATIENT FROM DEANN SANDOVAL FOR CONTINUATION OF CARE, ON MECHANICAL VENTILATOR, NO SOB/ACUTE DISTRESS NOTED AT THIS TIME, KEPT HOB ELEVATED, ON GT FEEDING ORDERED, GT PATENT AND IN PLACE, NO RESIDUAL AT THIS TIME, JAMIL IN PLACE, PATENCY INTACT, IVF NS AT 75 ML/HR INFUSING WELL AND PATIENT TOLERATED WELL, WILL CONTINUE TO MONITOR CLOSELY.
[2020-10-05 08:00] VITALS: BP 122/78
[2020-10-05 08:21] VITALS: BP 122/78
[2020-10-05] MEDS: ACIDOPHILUS/BULGARICUS 1 EACH TAB.CHEW GT SCH ×2 (08:46→22:39)
[2020-10-05] MEDS: CHOLECALCIFEROL 1,000 UNIT TABLET (VIT D3) PO SCH (08:47)
[2020-10-05] MEDS: PAROXETINE HCL 10 MG TABLET GT SCH (08:47)
[2020-10-05] MEDS: FAMOTIDINE (20 MG) 20 MG TABLET GT SCH ×2 (08:47→16:16)
[2020-10-05] MEDS: ASCORBIC ACID 500 MG TABLET GT SCH (08:47)
[2020-10-05] MEDS: MULTIVITAMINS,THERAGRAN 1 UDTAB TABLET GT SCH (08:47)
[2020-10-05] MEDS: METOPROLOL TARTRATE 25 MG TABLET GT SCH (08:47)
[2020-10-05] MEDS: PROSOURCE / PROSTAT (PYXIS) 30 ML UDC GT SCH (08:48)
[2020-10-05] MEDS: CLOTRIMAZOLE 1% 15 GM TUBE TP SCH ×2 (08:50→16:16)
[2020-10-05] MEDS: ENOXAPARIN SODIUM 40 MG/0.4 ML DISP.SYRIN SQ SCH (08:50)
[2020-10-05] MEDS: CEFEPIME 2 GM in IV D5W 100 ML IV SCH ×2 (10:31→22:33)
[2020-10-05 11:20] LABS: BASOPHILS # (AUTO) 0.1 K/uL (0.0-0.2); BASOPHILS % (AUTO) 0.6 % (0.0-2.0); EOSINOPHILS % (AUTO) 4.8 % (0.0-6.0); HEMATOCRIT 26 % (39-51); HEMOGLOBIN 8.3 g/dL (13.5-17.5); LYMPHOCYTES # (AUTO) 3.5 K/uL (0.8-4.8); LYMPHOCYTES % (AUTO) 20.1 % (20.0-44.0); MEAN CORPUSCULAR HGB CONC 32 g/dl (31.0-36.0); MEAN CORPUSCULAR VOLUME 92 fL (80-96); MONOCYTES # (AUTO) 1.6 K/uL (0.1-1.30); MONOCYTES % (AUTO) 8.9 % (2.0-12.0); NEUTROPHILS # (AUTO) 11.5 K/uL (1.8-8.9); NEUTROPHILS % (AUTO) 65.6 % (43.0-81.0); PLATELET COUNT (AUTO) 493 K/uL (150-450); RED BLOOD CELL COUNT(AUTO) 2.85 MIL/uL (4.5-6.0); WHITE BLOOD COUNT (AUTO) 17.5 K/uL (4.3-11.0)
[2020-10-05 12:34] LABS: BILIRUBIN,DIRECT 0.1 mg/dL (0.0-0.2); BILIRUBIN,TOTAL 0.2 mg/dL (0.2-1.0); TOTAL PROTEIN, SERUM 6.7 g/dL (6.4-8.2)
--- NOTE | 2020-10-05 12:55 | NUR ---
RN NOTES, ENDORSED PATIENT IN STABLE CONDITION TO DEANN CHARGE NURSE FOR CONTINUATION OF CARE.
[2020-10-05 13:03] VITALS: BP 126/80
[2020-10-05] MEDS: IV NS 0.9% 1,000 ML IV PRN (13:15)
[2020-10-05 16:22] VITALS: BP 126/80
--- NOTE | 2020-10-05 18:23 | NUR ---
RN CLOSING NOTE PT IN ROOM A&OX2-3. PATIENT ON TELE MONITOR SHOWING NORMAL SR. CURRENT O2 SATURATION IS >95% ON PRESCRIBED MECHANICAL VENT SETTINGS. SHOWING NO S/S OF SOB/RESPIRATORY DISTRESS. . PT CURRENTLY RECEIVING JEVITY 1.2@ 60 ML/HR, TOLERATING WELL WITH 30 ML RESIDUAL. PATIENT HAS LEFT UA MIDLINE RECEIVING NS AT 75ML/HR, FLUSHED AND PATENT. PATIENT WAS ABLE TO REST COMFORTABLY THROUGHOUT NIGHT. SUCTIONING COMPLETED NEEDED. ALL NEEDS ATTENDED TO. PT. KEPT CLEAN AND DRY AND WOUND CARE COMPLETED ORDERED. JAMIL CATHETER FLOWING TO GRAVITY, PATENT WITH CLEAR YELLOW URINE. SAFETY MEASURES IMPLEMENTED, BED LOCKED AND IN LOWEST POSITION, SIDE RAILS UP X3, CALL LIGHT WITHIN REACH. NO ACUTE DISTRESS NOTED AT THIS TIME. WILL ENDORSE TO ONCOMING SHIFT
--- NOTE | 2020-10-05 21:50 | NUR ---
CONTINUITY OF CARE Patient transferred from [facility] by bed. Skin check done, sacrum stage 2. Incontinent care, patient had a bowel movement, stool bright orange to light red. Will informed MD. Trac intact, patient on mechanical vent. Gtube connect to feeding, gorman cath in place, ENOCH midline, ongoing IVF. Maintained safety.
--- NOTE | 2020-10-05 21:56 | NUR ---
RN notes In bed resting comfortably with no distress noted. Breathing even and unlabored. Vent setting well tolerated. Alert, non verbal with eye tracking. No physical manifestation of pain or discomfort. Kept clean and dry. Transferred to [facility] room 308 safely and comfortably, Diamond SANDOVAL.
[2020-10-05] MEDS: LATANOPROST EYE DROP 0.005% 2.5 ML BOTTLE EACHEYE SCH (22:00)
[2020-10-05] MEDS: VANCOMYCIN 0.75 GM in IV D5W 250 ML IV SCH (23:44)
[2020-10-06] VITALS: BP 127/72
--- NOTE | 2020-10-06 00:27 | NUR ---
STOOL OB 10/05/ H/H 8.3 Plt 493 Stool bright orange to light red x1. Notified Dr. Bautista, order placed, will collect stool the next time patient have a bowel movement.
[2020-10-06] MEDS: IPRATROPIUM NEB FS 0.5 MG/2.5 ML AMPUL.NEB NEB SCH ×6 (03:41→23:53)
[2020-10-06] MEDS: ALBUTEROL HALF STRENGTH 1.25 MG/3 ML VIAL.NEB NEB SCH ×6 (03:41→23:53)
[2020-10-06] MEDS: JEVITY 1.2 CAL 1,000 ML BOTTLE GT PRN (04:37)
[2020-10-06 06:18] LABS: BASOPHILS # (AUTO) 0.1 K/uL (0.0-0.2); BASOPHILS % (AUTO) 0.4 % (0.0-2.0); EOSINOPHILS % (AUTO) 4.9 % (0.0-6.0); HEMATOCRIT 27 % (39-51); HEMOGLOBIN 8.6 g/dL (13.5-17.5); LYMPHOCYTES # (AUTO) 3.9 K/uL (0.8-4.8); LYMPHOCYTES % (AUTO) 21.8 % (20.0-44.0); MEAN CORPUSCULAR HGB CONC 32 g/dl (31.0-36.0); MEAN CORPUSCULAR VOLUME 92 fL (80-96); MONOCYTES # (AUTO) 1.9 K/uL (0.1-1.30); MONOCYTES % (AUTO) 10.5 % (2.0-12.0); NEUTROPHILS # (AUTO) 11.3 K/uL (1.8-8.9); NEUTROPHILS % (AUTO) 62.4 % (43.0-81.0); PLATELET COUNT (AUTO) 511 K/uL (150-450); RED BLOOD CELL COUNT(AUTO) 2.95 MIL/uL (4.5-6.0); WHITE BLOOD COUNT (AUTO) 18.1 K/uL (4.3-11.0)
--- NOTE | 2020-10-06 06:42 | NUR ---
END OF SHIFT REPORT Patient is non verbal, eyes open. Sinus rhythm HR 97 in the Tele monitor. Trach intact, on mechanical vent. NPO. On tube feeding tolerating well. Ongoing IVF, on IV Maxipime and Vancomycin. Afebrile. Patient with episode of loose stool bright orange to light red color. Stool was discarded during care. Now for stool OB, specimen not available at this time. Will endorse to oncoming RN.
[2020-10-06 07:19] LABS: BILIRUBIN,TOTAL 0.2 mg/dL (0.2-1.0); CALCIUM, SERUM 8.6 mg/dL (8.5-10.1); CREATININE 0.8 mg/dL (0.6-1.3); TOTAL PROTEIN, SERUM 6.7 g/dL (6.4-8.2)
[2020-10-06 08:00] VITALS: BP 165/90
[2020-10-06] MEDS: MULTIVITAMINS,THERAGRAN 1 UDTAB TABLET GT SCH (08:17)
[2020-10-06] MEDS: PAROXETINE HCL 10 MG TABLET GT SCH (08:17)
[2020-10-06] MEDS: FAMOTIDINE (20 MG) 20 MG TABLET GT SCH ×2 (08:17→16:15)
[2020-10-06] MEDS: ACIDOPHILUS/BULGARICUS 1 EACH TAB.CHEW GT SCH ×2 (08:17→22:07)
[2020-10-06] MEDS: ASCORBIC ACID 500 MG TABLET GT SCH (08:17)
[2020-10-06] MEDS: CHOLECALCIFEROL 1,000 UNIT TABLET (VIT D3) PO SCH (08:17)
[2020-10-06] MEDS: METOPROLOL TARTRATE 25 MG TABLET GT SCH (08:18)
[2020-10-06] MEDS: ENOXAPARIN SODIUM 40 MG/0.4 ML DISP.SYRIN SQ SCH (08:21)
[2020-10-06] MEDS: PROSOURCE / PROSTAT (PYXIS) 30 ML UDC GT SCH (08:35)
[2020-10-06] MEDS: CLOTRIMAZOLE 1% 15 GM TUBE TP SCH ×2 (08:35→16:25)
[2020-10-06] MEDS: CEFEPIME 2 GM in IV D5W 100 ML IV SCH ×2 (09:55→22:07)
[2020-10-06 16:00] VITALS: BP 128/77
--- NOTE | 2020-10-06 18:43 | NUR ---
RECEPTION MANAGER CLOSING NOTE PATIENT CURRENTLY LYING IN BED, RESTING. EASY TO AROUSE - RESPONDS TO TOUCH - NODS HEAD FOR YES AND NO QUESTIONS. A/O X1-2. BOTH HANDS CONTRACTED. STABLE ON VENTILATOR - REQUIRES FREQUENT SUCTION. ON TELE MONITOR - SR IN THE 90S. CURRENT O2 SATURATION IS >95% ON PRESCRIBED MECHANICAL VENT SETTINGS. NO SOB/RESPIRATORY DISTRESS NOTED. PT CURRENTLY RECEIVING JEVITY 1.2 @ 60 ML/HR - STOPPED AT 4PM, TO START AGAIN @ 8PM. PATIENT HAS LEFT UA MIDLINE RECEIVING NS AT 75ML/HR, FLUSHED AND PATENT. PATIENT KEPT CLEAN AND DRY. JAMIL CATHETER INTACT AND PATENT - DRAINING TO GRAVITY WITH CLEAR YELLOW URINE. SAFETY MEASURES IMPLEMENTED. CALL LIGHT WITHIN REACH. WILL ENDORSE TO PICKING TABLE WORKER NURSE FOR TOSHIA.
--- NOTE | 2020-10-06 19:54 | NUR ---
APARTMENT MAINTENANCE OPENING NOTE A/OX1; APHASIC. TOLERATING ROOM VENT SETTINGS WELL WITH NO SOB. EXTERNAL TEMPERATURE INSPECTOR READS NSR AT 89. NO S/SX OF PAIN AT THIS TIME. ENOCH MIDLINE #18G NS @ 75ML/HR; PATENT AND INTACT. F/C DRAINING YELLOW URINE; PATENT AND INTACT. GT FEEDINGS ON HOLD AT THIS TIME; PATENT AND INTACT. SAFETY MEASURES IN PLACE: BED IN LOWEST LOCKED POSITION, SIDE RAILS UPX2, CALL LIGHT WITHIN REACH, BED ALARMS ON. NO ACUTE DISTRESS NOTED. WILL CONTINUE PLAN OF CARE.
[2020-10-06 20:00] VITALS: BP 100/69
[2020-10-06] MEDS: LATANOPROST EYE DROP 0.005% 2.5 ML BOTTLE EACHEYE SCH (22:00)
--- NOTE | 2020-10-06 23:05 | NUR ---
PALLIATIVE CARE NURSE PRACTITIONER NOTE - OB COLLECTED STOOL SPECIMEN FOR OB; NOTIFIED LAB
[2020-10-07] VITALS: BP 103/71
[2020-10-07] MEDS: IV NS 0.9% 1,000 ML IV PRN ×2 (00:01→14:37)
[2020-10-07] MEDS: IPRATROPIUM NEB FS 0.5 MG/2.5 ML AMPUL.NEB NEB SCH ×6 (03:38→23:16)
[2020-10-07] MEDS: ALBUTEROL HALF STRENGTH 1.25 MG/3 ML VIAL.NEB NEB SCH ×6 (03:38→23:16)
[2020-10-07 04:00] VITALS: BP 145/80
[2020-10-07] MEDS: JEVITY 1.2 CAL 1,000 ML BOTTLE GT PRN (05:51)
--- NOTE | 2020-10-07 06:39 | NUR ---
JEWEL HOLE GAUGER CLOSING NOTE A/OX1; APHASIC. TOLERATING VENT SETTINGS WELL WITH NO SOB. EXTERNAL SHOTBLAST EQUIPMENT OPERATOR READS ST AT 102. NO S/SX OF PAIN AT THIS TIME. ENOCH MIDLINE #18G NS @ 75ML/HR; PATENT AND INTACT. F/C DRAINING YELLOW URINE; PATENT AND INTACT. GT FEEDING JEVITY 1.2 @60ML/HR; PATENT AND INTACT. SAFETY MEASURES IN PLACE: BED IN LOWEST LOCKED POSITION, SIDE RAILS UPX2, CALL LIGHT WITHIN REACH, BED ALARMS ON. NO ACUTE DISTRESS NOTED. WILL ENDORSE PLAN OF CARE TO ONCOMING MORNING RN.
[2020-10-07 06:40] LABS: BASOPHILS # (AUTO) 0.1 K/uL (0.0-0.2); BASOPHILS % (AUTO) 0.7 % (0.0-2.0); EOSINOPHILS % (AUTO) 5.6 % (0.0-6.0); HEMATOCRIT 26 % (39-51); HEMOGLOBIN 8.2 g/dL (13.5-17.5); LYMPHOCYTES # (AUTO) 3.4 K/uL (0.8-4.8); LYMPHOCYTES % (AUTO) 23.4 % (20.0-44.0); MEAN CORPUSCULAR HGB CONC 32 g/dl (31.0-36.0); MEAN CORPUSCULAR VOLUME 91 fL (80-96); MONOCYTES # (AUTO) 1.5 K/uL (0.1-1.30); MONOCYTES % (AUTO) 10.3 % (2.0-12.0); NEUTROPHILS # (AUTO) 8.8 K/uL (1.8-8.9); PLATELET COUNT (AUTO) 526 K/uL (150-450); RED BLOOD CELL COUNT(AUTO) 2.83 MIL/uL (4.5-6.0); WHITE BLOOD COUNT (AUTO) 14.7 K/uL (4.3-11.0)
[2020-10-07 06:59] LABS: ALBUMIN 1.9 g/dL (3.4-5.0); BILIRUBIN,TOTAL 0.2 mg/dL (0.2-1.0); CALCIUM, SERUM 8.5 mg/dL (8.5-10.1); CREATININE 0.8 mg/dL (0.6-1.3); POTASSIUM 3.8 mmol/L (3.5-5.1); TOTAL PROTEIN, SERUM 6.4 g/dL (6.4-8.2)
[2020-10-07 08:00] VITALS: BP 134/74
[2020-10-07] MEDS: ENOXAPARIN SODIUM 40 MG/0.4 ML DISP.SYRIN SQ SCH (10:07)
[2020-10-07] MEDS: FAMOTIDINE (20 MG) 20 MG TABLET GT SCH ×2 (10:09→18:30)
[2020-10-07] MEDS: MULTIVITAMINS,THERAGRAN 1 UDTAB TABLET GT SCH (10:09)
[2020-10-07] MEDS: PAROXETINE HCL 10 MG TABLET GT SCH (10:09)
[2020-10-07] MEDS: ASCORBIC ACID 500 MG TABLET GT SCH (10:10)
[2020-10-07] MEDS: ACIDOPHILUS/BULGARICUS 1 EACH TAB.CHEW GT SCH ×2 (10:10→20:21)
[2020-10-07] MEDS: METOPROLOL TARTRATE 25 MG TABLET GT SCH (10:10)
[2020-10-07] MEDS: CHOLECALCIFEROL 1,000 UNIT TABLET (VIT D3) PO SCH (10:11)
[2020-10-07] MEDS: PROSOURCE / PROSTAT (PYXIS) 30 ML UDC GT SCH (10:18)
[2020-10-07] MEDS: CEFEPIME 2 GM in IV D5W 100 ML IV SCH ×2 (10:18→10:29)
[2020-10-07] MEDS: Z GUARD REMEDY 2 OZ OINT TP PRN ×2 (10:19→10:20)
[2020-10-07] MEDS: CLOTRIMAZOLE 1% 15 GM TUBE TP SCH ×2 (10:19→18:30)
[2020-10-07 11:16] LABS: OCCULT BLOOD STOOL NEGATIVE (NEGATIVE)
[2020-10-07] MEDS: ALBUMIN 25% 25 GM in PREMIX 1 EA IV SCH ×2 (11:27→21:37)
--- NOTE | 2020-10-07 12:00 | NUR ---
given albumin iv for low albumin.
[2020-10-07] MEDS ORDERED: COLISTIMETHATE SODIUM 150 MG CBA VIAL NEB ONE (12:30)
[2020-10-07 16:00] VITALS: BP 139/72
--- NOTE | 2020-10-07 19:56 | NUR ---
COORDINATE MEASURING MACHINE PROGRAMMER OPENING NOTE RECEIVED PT AWAKE IN BED. A/O X1. PT IS APHASIC AND OPENS EYES. TOLERATING ROOM VENT SETTINGS WELL WITH NO SOB OR S/S OF RESPIRATORY DISTRESS. PT ON EXTERNAL HUMAN RESOURCES BENEFITS SPECIALIST READING SR AT 94 BPM. NO S/S OF PAIN OR DISCOMFORT AT THIS TIME. IV ACCESS IN ENOCH MIDLINE #18, INFUSING NS @ 75 ML/HR. IV ACCESS IS INTACT AND PATENT. JAMIL CATH IN PLACE DRAINING CLEAR YELLOW URINE. GTUBE FEEDING ON HOLD AT THIS TIME, INTACT AND PATENT. SAFETY MEASURES MAINTAINED. BED IN LOWEST LOCKED POSITION, SIDE RAILS UP X2, BED ALARM ON. CALL LIGHT AND TABLE WITHIN REACH. WILL CONTINUE WITH PLAN OF CARE.
[2020-10-07 20:00] VITALS: BP 108/74
[2020-10-07] MEDS: LATANOPROST EYE DROP 0.005% 2.5 ML BOTTLE EACHEYE SCH (22:00)
[2020-10-08] VITALS: BP 127/75
[2020-10-08] MEDS: IPRATROPIUM NEB FS 0.5 MG/2.5 ML AMPUL.NEB NEB SCH ×6 (03:35→23:59)
[2020-10-08] MEDS: ALBUTEROL HALF STRENGTH 1.25 MG/3 ML VIAL.NEB NEB SCH ×6 (03:35→23:59)
[2020-10-08 03:42] VITALS: BP 116/67
--- NOTE | 2020-10-08 06:45 | NUR ---
SYSTEM SUPPORT TECHNICIAN CLOSING NOTE PT IN BED WITH EYES CLOSED, AROUSABLE TO STIMULATION. A/O X1. PT IS APHASIC AND OPENS EYES. TOLERATING ROOM VENT SETTINGS WELL WITH NO SOB OR S/S OF RESPIRATORY DISTRESS. PT ON EXTERNAL CISCO CONSULTANT READING SR AT 97. NO S/S OF PAIN OR DISCOMFORT AT THIS TIME. IV ACCESS IS INTACT, PATENT, AND FLUSHING WELL. JAMIL CATH IN PLACE DRAINING CLEAR YELLOW URINE. GTUBE FEEDING JEVITY 1.2 @ 60 ML/HR, INTACT AND PATENT. ALL NEEDS HAVE BEEN MET. WOUND CARE ADMINISTERED PER ORDER. PT REPOSITIONED Q2H AND PRN. SAFETY AND ASPIRATION PRECAUTIONS MAINTAINED AT ALL TIMES. BED IN LOWEST LOCKED POSITION, SIDE RAILS UP X2, BED ALARM ON. CALL LIGHT AND TABLE WITHIN REACH. WILL ENDORSE TO ONCOMING NURSE FOR TOSHIA.
--- NOTE | 2020-10-08 07:20 | NUR ---
RN NOTES SEEN PT IN BED RESTING, EYES CLOSED, ABLE TO BE AWAKENED. NON-VERBAL BUT MOUTHS WORDS AND GESTURES W/ RIGHT ARM. ON TRACH W/ CURRENT VENT SETTINGS TOLERATED WELL BY PATIENT. ON CARDIAC MONITORING W/ READING OF SR, HR IN THE 80S-90S, NO CARDIAC DISTRESS. ENOCH MIDLINE INTACT AND PATENT. AJMIL CATH IN PLACE AND DRAINING CLEAR YELLOW URINE. GT PATENT, FEEDING OF JEVITY 1.2 @ 60 ML/HR. SAFETY MEASURES IN PLACE. WILL CONTINUE TO MONITOR..
[2020-10-08 08:00] VITALS: BP 128/79
[2020-10-08 09:08] LABS: BASOPHILS # (AUTO) 0.2 K/uL (0.0-0.2); EOSINOPHILS % (AUTO) 5.5 % (0.0-6.0); HEMATOCRIT 25 % (39-51); HEMOGLOBIN 8.2 g/dL (13.5-17.5); LYMPHOCYTES # (AUTO) 3.7 K/uL (0.8-4.8); MEAN CORPUSCULAR HGB CONC 32 g/dl (31.0-36.0); MEAN CORPUSCULAR VOLUME 91 fL (80-96); MONOCYTES # (AUTO) 1.8 K/uL (0.1-1.30); MONOCYTES % (AUTO) 10.8 % (2.0-12.0); NEUTROPHILS # (AUTO) 10.1 K/uL (1.8-8.9); NEUTROPHILS % (AUTO) 60.7 % (43.0-81.0); PLATELET COUNT (AUTO) 537 K/uL (150-450); RED BLOOD CELL COUNT(AUTO) 2.79 MIL/uL (4.5-6.0); WHITE BLOOD COUNT (AUTO) 16.6 K/uL (4.3-11.0)
[2020-10-08] MEDS: METOPROLOL TARTRATE 25 MG TABLET GT SCH (09:25)
[2020-10-08] MEDS: FAMOTIDINE (20 MG) 20 MG TABLET GT SCH ×2 (09:25→16:02)
[2020-10-08] MEDS: MULTIVITAMINS,THERAGRAN 1 UDTAB TABLET GT SCH (09:25)
[2020-10-08] MEDS: PAROXETINE HCL 10 MG TABLET GT SCH (09:25)
[2020-10-08] MEDS: ASCORBIC ACID 500 MG TABLET GT SCH (09:25)
[2020-10-08] MEDS: CHOLECALCIFEROL 1,000 UNIT TABLET (VIT D3) PO SCH (09:25)
[2020-10-08] MEDS: ACIDOPHILUS/BULGARICUS 1 EACH TAB.CHEW GT SCH ×2 (09:25→21:30)
[2020-10-08] MEDS: CLOTRIMAZOLE 1% 15 GM TUBE TP SCH ×2 (09:26→16:02)
[2020-10-08] MEDS: PROSOURCE / PROSTAT (PYXIS) 30 ML UDC GT SCH (09:26)
[2020-10-08] MEDS: ENOXAPARIN SODIUM 40 MG/0.4 ML DISP.SYRIN SQ SCH (09:26)
[2020-10-08] MEDS: JEVITY 1.2 CAL 1,000 ML BOTTLE GT PRN (10:07)
[2020-10-08 10:49] LABS: CALCIUM, SERUM 9.1 mg/dL (8.5-10.1); CREATININE 0.9 mg/dL (0.6-1.3); POTASSIUM 3.9 mmol/L (3.5-5.1)
--- NOTE | 2020-10-08 11:00 | NUR ---
RN NOTES FEEDING BAG CHANGED; GT FLUSHED FOR PATENTCY.
[2020-10-08 11:41] LABS: ALBUMIN 2.3 g/dL (3.4-5.0); BILIRUBIN,TOTAL 0.2 mg/dL (0.2-1.0); TOTAL PROTEIN, SERUM 6.8 g/dL (6.4-8.2)
[2020-10-08] MEDS: IV NS 0.9% 1,000 ML IV PRN (15:02)
[2020-10-08 16:00] VITALS: BP 123/73
--- NOTE | 2020-10-08 19:05 | NUR ---
RN NOTES PATIENT IN BED, EYES OPEN, TRACKS MOVEMENT AND ABLE TO USE RIGHT ARM FOR GESTURING. TRACH SUCTIONING DONE; VENT SETTINGS TOLERATED WELL, NO RESPIRATORY DISTRESS NOTED. MIDLINE INTACT, IVF INFUSING WELL. SAFETY MEASURES MAINTAINED. ENDORSED TO AUTOMOTIVE SERVICES MANAGER RN FOR TOSHIA.
--- NOTE | 2020-10-08 19:20 | NUR ---
TELE/RN OPENING NOTE RECEIVED PATIENT RESTING IN BED. AWAKE, NON-VERBAL AT BASELINE. OPENS EYES, NODS HEAD. CONTINUES ON MECHANICAL VENT WITH PATIENT TOLERATING SETTINGS WELL. CONTINUES ON TELE MONITOR WITH CURRENT READING OF SR 68. IV ACCESS TO LEFT UPPER ARM MIDLINE INTACT AND PATENT. CONTINUES ON IVF NS @ 75ML/HR. CONTINUES ON GT FEEDING @ 60CC/HR WITH NO RESIDUAL NOTED. JAMIL CATHETER PATENT DRAINING CLEAR, YELLOW URINE. CALL LIGHT WITHIN REACH. FREQUENT SAFETY CHECKS MADE. ASPIRATION, FALL AND SAFETY PRECAUTIONS MAINTAINED. WILL CONTINUE TO MONITOR.
[2020-10-08 20:00] VITALS: BP 119/84
[2020-10-08] MEDS: COLISTIMETHATE SODIUM 150 MG CBA VIAL NEB SCH ×2 (21:07→21:09)
[2020-10-08] MEDS: LATANOPROST EYE DROP 0.005% 2.5 ML BOTTLE EACHEYE SCH (21:31)
--- NOTE | 2020-10-08 21:31 | NUR ---
TELE/RN NOTE UNABLE TO LOCATE LATANAPROST EYE DROPS. CHECKED PATIENTS CASSETTE AND PATIENTS BEDSIDE TABLE. WILL NOTIFY PHARMACY IN AM.
[2020-10-09] VITALS: BP 125/79
[2020-10-09 04:00] VITALS: BP 116/75
[2020-10-09] MEDS: IPRATROPIUM NEB FS 0.5 MG/2.5 ML AMPUL.NEB NEB SCH ×6 (04:01→23:54)
[2020-10-09] MEDS: ALBUTEROL HALF STRENGTH 1.25 MG/3 ML VIAL.NEB NEB SCH ×6 (04:01→23:54)
[2020-10-09] MEDS: IV NS 0.9% 1,000 ML IV PRN ×2 (05:03→17:58)
--- NOTE | 2020-10-09 06:10 | NUR ---
TELE/RN CLOSING NOTE PATIENT CURRENTLY RESTING IN BED. AWAKE, NON-VERBAL AT BASELINE. OPENS EYES, NODS HEAD. CONTINUES ON MECHANICAL VENT WITH PATIENT TOLERATING SETTINGS WELL. CONTINUES ON TELE MONITOR WITH CURRENT READING OF SR 85. IV ACCESS TO LEFT UPPER ARM MIDLINE INTACT AND PATENT. CONTINUES ON IVF NS @ 75ML/HR. CONTINUES ON GT FEEDING @ 60CC/HR WITH NO RESIDUAL NOTED. JAMIL CATHETER PATENT DRAINING CLEAR, YELLOW URINE. CALL LIGHT WITHIN REACH. FREQUENT SAFETY CHECKS MADE. ASPIRATION, FALL AND SAFETY PRECAUTIONS MAINTAINED. WILL ENDORSE PLAN OF CARE TO ONCOMING SHIFT.
[2020-10-09] MEDS: JEVITY 1.2 CAL 1,000 ML BOTTLE GT PRN (06:33)
[2020-10-09 07:09] LABS: BASOPHILS # (AUTO) 0.1 K/uL (0.0-0.2); BASOPHILS % (AUTO) 0.7 % (0.0-2.0); HEMATOCRIT 27 % (39-51); HEMOGLOBIN 8.5 g/dL (13.5-17.5); LYMPHOCYTES # (AUTO) 4.7 K/uL (0.8-4.8); LYMPHOCYTES % (AUTO) 25.6 % (20.0-44.0); MEAN CORPUSCULAR HGB CONC 32 g/dl (31.0-36.0); MEAN CORPUSCULAR VOLUME 91 fL (80-96); NEUTROPHILS # (AUTO) 10.4 K/uL (1.8-8.9); NEUTROPHILS % (AUTO) 56.7 % (43.0-81.0); PLATELET COUNT (AUTO) 542 K/uL (150-450); RED BLOOD CELL COUNT(AUTO) 2.94 MIL/uL (4.5-6.0); WHITE BLOOD COUNT (AUTO) 18.3 K/uL (4.3-11.0)
[2020-10-09 07:43] LABS: CALCIUM, SERUM 9.2 mg/dL (8.5-10.1); CREATININE 0.8 mg/dL (0.6-1.3); PHOSPHORUS 3.6 mg/dL (2.5-4.9); POTASSIUM 3.8 mmol/L (3.5-5.1)
--- NOTE | 2020-10-09 07:44 | NUR ---
DIRECTOR SPORTS OPENING NOTES RECEIVED PATIENT IN BED, AWAKE, A/O X1, OPENS EYES. PATIENT ON VENT, TOLERATING SETTINGS WELL AT THIS TIME. TELE MONITOR WITH A CURRENT READING OF SR 98 BPM. NO S/S OF PAIN SUCH FACIAL GRIMACING, MOANING OR GUARDING NOTED. ENOCH MIDLINE PRESENT AND INFUSING NS @ 75 MLS/HR. G-TUBE IN PLACE AND RUNNING JEVITY 1.2 @ 60MLS/HR. JAMIL CATH INTACT AND DRAINING CLEAR YELLOW URINE. SAFETY PRECAUTIONS IN PLACE; BED IN LOW POSITION AND LOCKED, RAILS UP X2, CALL LIGHT WITHIN REACH. WILL CONTINUE TO MONITOR PATIENT.
[2020-10-09] MEDS: COLISTIMETHATE SODIUM 150 MG CBA VIAL NEB SCH ×2 (07:47→20:07)
[2020-10-09 08:00] VITALS: BP 131/78
[2020-10-09] MEDS: ASCORBIC ACID 500 MG TABLET GT SCH (08:47)
[2020-10-09] MEDS: ACIDOPHILUS/BULGARICUS 1 EACH TAB.CHEW GT SCH ×2 (08:47→21:10)
[2020-10-09] MEDS: MULTIVITAMINS,THERAGRAN 1 UDTAB TABLET GT SCH (08:47)
[2020-10-09] MEDS: PAROXETINE HCL 10 MG TABLET GT SCH (08:47)
[2020-10-09] MEDS: METOPROLOL TARTRATE 25 MG TABLET GT SCH (08:48)
[2020-10-09] MEDS: FAMOTIDINE (20 MG) 20 MG TABLET GT SCH ×2 (08:48→16:40)
[2020-10-09] MEDS: CHOLECALCIFEROL 1,000 UNIT TABLET (VIT D3) PO SCH (08:48)
[2020-10-09] MEDS: PROSOURCE / PROSTAT (PYXIS) 30 ML UDC GT SCH (08:49)
[2020-10-09] MEDS: CLOTRIMAZOLE 1% 15 GM TUBE TP SCH ×2 (08:49→16:24)
[2020-10-09] MEDS: ENOXAPARIN SODIUM 40 MG/0.4 ML DISP.SYRIN SQ SCH (09:00)
--- NOTE | 2020-10-09 09:04 | NUR ---
TELE MS NOTES PATIENT ON VENT REFUSED LOVENOX WHEN I TRIED TO GIVE THE INJECTION. PATIENT NODDED NO WITH HIS HEAD.
[2020-10-09 16:00] VITALS: BP 121/75
--- NOTE | 2020-10-09 18:29 | NUR ---
SENIOR VALIDATION ENGINEER CLOSING NOTES PATIENT REMAINS IN BED, AWAKE, A/O X1, OPENS EYES. PATIENT ON VENT, TOLERATING SETTINGS WELL. TELE MONITOR WITH A CURRENT READING OF SR 87 BPM. NO S/S OF PAIN SUCH FACIAL GRIMACING, MOANING OR GUARDING NOTED. ENOCH MIDLINE PRESENT AND INFUSING NS @ 75 MLS/HR. G-TUBE IN PLACE AND ON HOLD NOW FOR 4 HOURS. JAMIL CATH INTACT AND DRAINING CLEAR YELLOW URINE WITH A DAILY OUTPUT OF 850 MLS. ALL NEEDS ATTENDED DURING THE DAY. PATIENT CLEAN AND DRY. SAFETY PRECAUTIONS IN PLACE; BED IN LOW POSITION AND LOCKED, RAILS UP X2, CALL LIGHT WITHIN REACH. WILL ENDORSE TO HOSPICE PLAN ADMINISTRATOR NURSE.
--- NOTE | 2020-10-09 19:10 | NUR ---
TELE/RN OPENING NOTE RECEIVED PATIENT SLEEPING IN BED. NON-VERBAL AT BASELINE. OPENS EYES, NODS HEAD. CONTINUES ON MECHANICAL VENT WITH PATIENT TOLERATING SETTINGS WELL. CONTINUES ON TELE MONITOR WITH CURRENT READING OF SR 77. IV ACCESS TO LEFT UPPER ARM MIDLINE INTACT AND PATENT. CONTINUES ON IVF NS @ 75ML/HR. CONTINUES ON GT FEEDING @ 60CC/HR WITH NO RESIDUAL NOTED. JAMIL CATHETER PATENT DRAINING CLEAR, YELLOW URINE. CALL LIGHT WITHIN REACH. FREQUENT SAFETY CHECKS MADE. ASPIRATION, FALL AND SAFETY PRECAUTIONS MAINTAINED. WILL CONTINUE TO MONITOR.
[2020-10-09 20:00] VITALS: BP 123/82
[2020-10-09] MEDS: LATANOPROST EYE DROP 0.005% 2.5 ML BOTTLE EACHEYE SCH (22:00)
[2020-10-10] VITALS: BP 116/75
[2020-10-10 04:00] VITALS: BP 122/83
[2020-10-10] MEDS: IPRATROPIUM NEB FS 0.5 MG/2.5 ML AMPUL.NEB NEB SCH ×6 (04:02→23:51)
[2020-10-10] MEDS: ALBUTEROL HALF STRENGTH 1.25 MG/3 ML VIAL.NEB NEB SCH ×6 (04:02→23:51)
[2020-10-10] MEDS: IV NS 0.9% 1,000 ML IV PRN (05:15)
[2020-10-10] MEDS: JEVITY 1.2 CAL 1,000 ML BOTTLE GT PRN (05:42)
--- NOTE | 2020-10-10 06:10 | NUR ---
TELE/RN CLOSING NOTE PATIENT CURRENTLY RESTING IN BED. AWAKE, NON-VERBAL AT BASELINE. OPENS EYES, NODS HEAD. CONTINUES ON MECHANICAL VENT WITH PATIENT TOLERATING SETTINGS WELL. CONTINUES ON TELE MONITOR WITH CURRENT READING OF SR 77. IV ACCESS TO LEFT UPPER ARM MIDLINE INTACT AND PATENT. CONTINUES ON IVF NS @ 75ML/HR. CONTINUES ON GT FEEDING @ 60CC/HR WITH NO RESIDUAL NOTED. JAMIL CATHETER PATENT DRAINING CLEAR, YELLOW URINE. OUTPUT WAS 1100CC THIS SHIFT. CALL LIGHT WITHIN REACH. FREQUENT SAFETY CHECKS MADE. ASPIRATION, FALL AND SAFETY PRECAUTIONS MAINTAINED. WILL ENDORSE PLAN OF CARE TO ONCOMING SHIFT.
--- NOTE | 2020-10-10 07:00 | NUR ---
MENTAL HEALTH PROFESSIONAL OPENING NOTES RECEIVE PT AWAKE IN BED AT THIS TIME. AOX1. OPEN EYES, ABLE TO NOD AND POINT. RESPOND TO LIGHT STIMULUS. NO SOB NOTED, NO S/O OF ANY ACUTE DISTRESS NOTED, NO S/O PAIN OR FACIAL GRIMACE AT THIS. MECHANICAL VENT SETTINGS READING AC 20, TV, 480, PEEP 5, FIO2 45%, TAMI #6. EXTERNAL CARGO INSPECTOR READING SR 93. G-TUBE FEEDING IN PLACE, NO RESIDUAL NOTED. JAMIL CATHETER NOTED, DRAINING TO GRAVITY CLEAR YELLOW URINE OUTPUT. ENOCH MIDLINE, INTACT, PATENT AND FLUSHING WELL. SAFETY PRECAUTIONS IN PLACE AND MAINTAINED AT ALL TIMES. BED IN LOWEST LOCKED POSITION, HOB ELEVATED, SIDE RAILS UP X2, CALL LIGHT AND TABLE WITHIN REACH. WILL CONTINUE TO MONITOR
[2020-10-10 08:00] VITALS: BP 142/81
[2020-10-10] MEDS: COLISTIMETHATE SODIUM 150 MG CBA VIAL NEB SCH ×2 (08:02→19:52)
[2020-10-10] MEDS: ASCORBIC ACID 500 MG TABLET GT SCH (09:41)
[2020-10-10] MEDS: PAROXETINE HCL 10 MG TABLET GT SCH (09:41)
[2020-10-10] MEDS: FAMOTIDINE (20 MG) 20 MG TABLET GT SCH ×2 (09:41→16:43)
[2020-10-10] MEDS: CHOLECALCIFEROL 1,000 UNIT TABLET (VIT D3) PO SCH (09:41)
[2020-10-10] MEDS: MULTIVITAMINS,THERAGRAN 1 UDTAB TABLET GT SCH (09:41)
[2020-10-10] MEDS: ACIDOPHILUS/BULGARICUS 1 EACH TAB.CHEW GT SCH ×2 (09:42→21:18)
[2020-10-10] MEDS: METOPROLOL TARTRATE 25 MG TABLET GT SCH (09:42)
[2020-10-10] MEDS: CLOTRIMAZOLE 1% 15 GM TUBE TP SCH ×2 (09:43→17:00)
[2020-10-10] MEDS: ENOXAPARIN SODIUM 40 MG/0.4 ML DISP.SYRIN SQ SCH (09:44)
[2020-10-10] MEDS: PROSOURCE / PROSTAT (PYXIS) 30 ML UDC GT SCH (09:52)
[2020-10-10 16:03] VITALS: BP 144/82
[2020-10-10 16:29] LABS: BILIRUBIN,URINE NEGATIVE (NEGATIVE); COLOR,URINE YELLOW (YELLOW); LEUKOCYTE ESTERASE ,URINE NEGATIVE (NEGATIVE); NITRITE, URINE NEGATIVE (NEGATIVE); PH,URINE 6.5 (5.0-8.0); PROTEIN,URINE 30 mg/dl (NEGATIVE); UGLUCOSE NEGATIVE (NEGATIVE); UROBILINOGEN,URINE 0.2 EU/dL (0.2)
[2020-10-10 16:47] LABS: BACTERIA,URINE None seen /HPF (None Seen); SQUAMOUS EPITHELIAL CELL,UR Few /HPF (None Seen); URINE AMORPHOUS URATE Few /HPF (None Seen)
--- NOTE | 2020-10-10 19:22 | NUR ---
MS RN CLOSING NOTES RECEIVED PT AWAKE IN BED, PT REMAINED STABLE THROUGHOUT SHIFT. ALL PATIENT CARE, NEEDS AND MEDICATIONS ADMINISTERED ANTICIPATED PER ORDER. SUCTION AND TRACH CARE PROVIDED NEEDED, PT REPOSITIONED Q2H AND PRN. KEPT CLEAN AND DRY. SAFETY PRECAUTIONS IN PLACE AND MAINTAINED AT ALL TIMES. BED IN LOWEST LOCKED POSITION, HOB ELEVATED, SIDE RAILS UP X2, CALL LIGHT AND TABLE WITHIN REACH.ENDORSED TO PATTERNMAKER APPRENTICE WOOD NURSE FOR TOSHIA
--- NOTE | 2020-10-10 19:55 | NUR ---
parts inspector Opening Notes Patient was last seen awake resting in bed. Patient is alert and oriented x1, opens eyes, and nods/points to communicate needs. Patient is connected to a mechanical ventilator with no respiratory distress noted. Patient's connected to a radiation monitor with no cardiac distress noted. Patient has a left upper arm midline, which is intact, patent, and flushing well. Safety measures in place: Bed locked, side rails up x3, bed alarm on, and call light within reach of the patient. Will continue to monitor the patient.
[2020-10-10 20:00] VITALS: BP 129/77
[2020-10-10] MEDS ORDERED: LATANOPROST EYE DROP 0.005% 2.5 ML BOTTLE ONE (21:37)
[2020-10-10] MEDS: LATANOPROST EYE DROP 0.005% 2.5 ML BOTTLE EACHEYE SCH (22:00)
[2020-10-11] MEDS: ALBUTEROL HALF STRENGTH 1.25 MG/3 ML VIAL.NEB NEB SCH ×4 (03:54→14:42)
[2020-10-11] MEDS: IPRATROPIUM NEB FS 0.5 MG/2.5 ML AMPUL.NEB NEB SCH ×4 (03:54→14:42)
[2020-10-11] MEDS: IV NS 0.9% 1,000 ML IV PRN (03:55)
[2020-10-11 04:00] VITALS: BP 104/72
[2020-10-11] MEDS: JEVITY 1.2 CAL 1,000 ML BOTTLE GT PRN (04:00)
--- NOTE | 2020-10-11 05:19 | NUR ---
joint runner Notes Performed all wound care treatments as ordered on the shift.
[2020-10-11 06:06] LABS: BASOPHILS # (AUTO) 0.1 K/uL (0.0-0.2); EOSINOPHILS % (AUTO) 8.3 % (0.0-6.0); HEMATOCRIT 27 % (39-51); HEMOGLOBIN 8.4 g/dL (13.5-17.5); LYMPHOCYTES # (AUTO) 3.6 K/uL (0.8-4.8); LYMPHOCYTES % (AUTO) 26.8 % (20.0-44.0); MEAN CORPUSCULAR HGB CONC 32 g/dl (31.0-36.0); MEAN CORPUSCULAR VOLUME 92 fL (80-96); MONOCYTES # (AUTO) 1.5 K/uL (0.1-1.30); MONOCYTES % (AUTO) 11.1 % (2.0-12.0); NEUTROPHILS # (AUTO) 7.1 K/uL (1.8-8.9); NEUTROPHILS % (AUTO) 52.8 % (43.0-81.0); PLATELET COUNT (AUTO) 494 K/uL (150-450); WHITE BLOOD COUNT (AUTO) 13.5 K/uL (4.3-11.0)
[2020-10-11 06:27] LABS: CALCIUM, SERUM 8.7 mg/dL (8.5-10.1); CREATININE 0.7 mg/dL (0.6-1.3)
--- NOTE | 2020-10-11 06:48 | NUR ---
corporation lawyer Closing Notes Patient was last seen awake resting in bed. Patient is alert and oriented x1, opens eyes, and nods/points to communicate needs. Patient is connected to a mechanical ventilator with no respiratory distress noted. Patient's connected to a desk monitor with no cardiac distress noted. Patient has a left upper arm midline, which is running NS at 75ml/hour. Safety measures in place: Bed locked, side rails up x3, bed alarm on, and call light within reach of the patient. Will endorse care to the day shift nurse.
--- NOTE | 2020-10-11 07:36 | NUR ---
MEMORY CARE PROGRAM DIRECTOR OPENING NOTES RECEIVED PT AWAKE IN BED IN NO ACUTE SIGN SOF DISTRESS. HOB ELEVATED. AOX1. OPEN EYES, ABLE TO NOD AND POINT. NO S/S OF PAIN LIKE FACIAL GRIMACES AT THIS. ON TRACH SHILEY #6 CONNECTED TO MECHANICAL VENT AT SETTINGS OF AC 20, TV, 480, PEEP 5, FIO2 45%, TOLERATING SETTINGS WELL WITH NO SOB NOTED. EXTERNAL WIRE SPIRAL BINDER READING CURRENTLY SHOWS ST 105. G-TUBE FEEDING OF JEVITY 1.2 AT 60ML/HR IN PROGRESS, TOLERATING WELL.ASPIRATION PRECAUTIONS MAINTAINED. ENOCH MIDLINE INTACT, PATENT AND FLUSHING WELL. JAMIL IN PLACE DRAINING TO GRAVITY CLEAR YELLOW URINE OUTPUT. SAFETY PRECAUTIONS IN PLACE: BED IN LOWEST LOCKED POSITION, HOB ELEVATED, SIDE RAILS UP X2, CALL LIGHT WITHIN REACH. WILL CONTINUE TO MONITOR
[2020-10-11 08:00] VITALS: BP 140/78
[2020-10-11] MEDS: COLISTIMETHATE SODIUM 150 MG CBA VIAL NEB SCH (08:27)
[2020-10-11] MEDS: ACIDOPHILUS/BULGARICUS 1 EACH TAB.CHEW GT SCH (09:08)
[2020-10-11] MEDS: PAROXETINE HCL 10 MG TABLET GT SCH (09:08)
[2020-10-11] MEDS: MULTIVITAMINS,THERAGRAN 1 UDTAB TABLET GT SCH (09:08)
[2020-10-11] MEDS: CHOLECALCIFEROL 1,000 UNIT TABLET (VIT D3) PO SCH (09:09)
[2020-10-11] MEDS: FAMOTIDINE (20 MG) 20 MG TABLET GT SCH ×2 (09:09→17:13)
[2020-10-11] MEDS: ASCORBIC ACID 500 MG TABLET GT SCH (09:09)
[2020-10-11] MEDS: METOPROLOL TARTRATE 25 MG TABLET GT SCH (09:15)
[2020-10-11] MEDS: ENOXAPARIN SODIUM 40 MG/0.4 ML DISP.SYRIN SQ SCH (09:16)
[2020-10-11] MEDS: PROSOURCE / PROSTAT (PYXIS) 30 ML UDC GT SCH (09:17)
[2020-10-11] MEDS: CLOTRIMAZOLE 1% 15 GM TUBE TP SCH ×2 (09:34→17:07)
[2020-10-11] MEDS ORDERED: COLI150V12 NEB (09:43)
--- NOTE | 2020-10-11 11:25 | NUR ---
RN NOTE CALLED ALL [facility] AND GAVE REPORT TO BINTA AUTO BODY MECHANIC APPRENTICE NURSE. REQUESTED NOT TO REMOVE IV MIDLINE ACCESS ON ENOCH. THEY WILL REMOVE AT THEIR FACILITY.
[2020-10-11 15:27] VITALS: BP 153/77
[2020-10-11 16:00] VITALS: BP 139/79
--- NOTE | 2020-10-11 19:03 | NUR ---
RN DISCHARGED NOTE PT DISCHARGED TO ALL [facility]F IN STABLE CONDITION. PT A/O X2-3, NONVERBAL, RESPONDS WITH NODS OR HAND GESTURES. ON TRACH SHILEY#6 CONNECTED TO MECHANICAL VENTILATOR AT PRESCRIBED SETTINGS. TOLERATING SETTINGS WELL WITH NO SOB NOTED. G-TUBE IN PLACE, INTACT AND PATENT, NO RESIDUALS NOTED. IV ACCESS ON ENOCH MIDLINE INTACT AND PATENT, AND LEFT IN PLACE, PER REQUEST BY DISTRIBUTION CENTER ASSISTANT NURSE, JULY, FROM ALL [facility]. THEY WILL REMOVE THE MIDLINE AT THEIR FACILITY. FC #[address] AND DRAINING WELL WITH CLEAR, YELLOW URINE. PT HAS NO BELONGINGS. ALL DISCHARGE INSTRUCTIONS PROVIDED TO SNF RN AND VERBALIZED UNDERSTANDING. CALLED PT'S , QUINN, MADE AWARE OF PT'S DISCHARGE TO ALL [facility]. PT LEFT UNIT @1900 ACCOMPANIED BY 2 EMT'S AND RT.
== END 2020-10-11 19:08 | DRG 870 ==
LOC: TELE1 17:56 → TELE 10-05 21:29
PROVIDERS: ADMIT Nurse Practitioner Acute Care; ATTEND Internal Medicine
PROC: 5A1955Z Respiratory Ventilation, Greater than 96 Consecutive Hours (ICD-10-PCS; principal; 2020-09-29)
PROC: 05HC33Z Insertion of Infusion Device into Left Basilic Vein, Percutaneous Approach (ICD-10-PCS; 2020-10-01)
PROC: 30233N1 Transfusion of Nonautologous Red Blood Cells into Peripheral Vein, Percutaneous Approach (ICD-10-PCS; 2020-10-01)
DX: A41.9 Sepsis, unspecified organism (principal); J18.9 Pneumonia, unspecified organism; J96.22 Acute and chronic respiratory failure with hypercapnia; N17.9 Acute kidney failure, unspecified; Z99.11 Dependence on respirator [ventilator] status; G93.40 Encephalopathy, unspecified; J47.0 Bronchiectasis with acute lower respiratory infection; J84.9 Interstitial pulmonary disease, unspecified; Z87.891 Personal history of nicotine dependence; Z20.822 Contact with and (suspected) exposure to COVID-19; D64.9 Anemia, unspecified; R13.10 Dysphagia, unspecified; Z93.1 Gastrostomy status; Z88.8 Allergy status to other drugs, medicaments and biological substances; Z66 Do not resuscitate; R53.81 Other malaise
CPT/HCPCS: 31720; 36410; 36415; 36600; 71045-TC; 80048-TC; 80053-TC; 80061-TC; 80076-TC; 80202-TC; 81001; 82272-TC; 82803-TC; 83540-TC; 83605-TC; 83735-TC; 84100-TC; 85025-TC; 86850-TC; 87040-TC; 87070-TC; 87086-TC; 87186-TC; 94002-TC; 94003-TC; 94640; 94640-TC; 94760-TC; 94762-TC; 94799-TC; 99082-TC; A4216; A6253; A6403; A6407; A7526; G0378; J0692; J0770; J1650; J3370; J3475; J7030; J7050; J7060; P9016; P9047; U0003